=== PATIENT | female | born 1940 | race Caucasian/White ===

== ENCOUNTER 2018-02-22 13:48 | Emergency (ER) | payer SELFPAY ==
--- NOTE | 2018-02-22 14:44 | ER Document Report ---
ED Medical Screen (RME) - General Chief Complaint: Neck and Upper Back Pain Stated Complaint: NECK/HEAD PAIN Time Seen by Provider: 02/22/18 14:42 Mode of Arrival: Ambulatory Information source: Patient TRAVEL OUTSIDE OF THE [place] IN LAST 30 DAYS: No - HPI Patient complains to provider of: neckl and head pain Onset: Other - pt with c/o neck and [place] for the past few days. No new injury - Related Data Allergies/Adverse Reactions: Sulfa (Sulfonamide Antibiotics) Allergy (Verified 02/22/18 14:42) Physical Exam - Vital signs Vitals: Temp Pulse Resp BP Pulse Ox 98.4 F 72 18 155/79 H 98 02/22/18 13:54 02/22/18 13:54 02/22/18 13:54 02/22/18 13:54 02/22/18 13:54 Course - Vital Signs Vital signs: Temp Pulse Resp BP Pulse Ox 98.4 F 72 18 155/79 H 98 02/22/18 13:54 02/22/18 13:54 02/22/18 13:54 02/22/18 13:54 02/22/18 13:54
--- NOTE | 2018-02-22 15:27 | RADIOLOGY REPORT (SQ) ---
EXAM DESCRIPTION: CT HEAD WITHOUT COMPLETED DATE/TIME: 02/22/2018 3:04 pm REASON FOR STUDY: neck pain COMPARISON: Concurrent CT cervical Spine TECHNIQUE: Axial images acquired through the brain without intravenous contrast. Images reviewed wi th bone, brain and subdural windows. Additional sagittal and coronal reconstructions were generated. Images stored on PACS. All CT scanners at this facility use dose modulation, iterative reconstruction, and/or weight based d osing when appropriate to reduce radiation dose to as low as reasonably achievable (ALARA). [facility]: Dose Right [facility]: CareDose [facility]: Dose Right [facility]: Teradose 4D [facility]: Smart [employer] RADIATION DOSE: CT Rad equipment meets quality standard of care and radiation dose reduction techniq ues were employed. CTDIvol: 53.2 mGy. DLP: 1203 mGy-cm. mGy. LIMITATIONS: None. FINDINGS: VENTRICLES: Prominent ventricles secondary to involutional atrophy. CEREBRUM: No masses. No hemorrhage. No midline shift. No evidence for acute infarction. Few scatte red areas of low density in the white matter most likely chronic small vessel ischemic changes. Phys iologic calcifications of the basal ganglia. CEREBELLUM: No masses. No hemorrhage. No alteration of density. No evidence for acute infarction. EXTRAAXIAL SPACES: No fluid collections. No masses. ORBITS AND GLOBE: No intra- or extraconal masses. Normal contour of globe without masses. CALVARIUM: No fracture. PARANASAL SINUSES: No fluid or mucosal thickening. SOFT TISSUES: No mass or hematoma. OTHER: No other significant finding. IMPRESSION: MILD CHRONIC MICROVASCULAR ISCHEMIA. NO ACUTE IMAGING FINDINGS IN THE BRAIN. EVIDENCE OF ACUTE STROKE: NO. COMMENT: Quality ID # [id number]: Final reports with documentation of one or more dose reduction techniques (e.g., Automated exposure control, adjustment of the mA and/or kV according to patient size, use of iterative reconstruction technique) TECHNICAL DOCUMENTATION: JOB ID: [id number] [employer]- All Rights Reserved Reading location - IP/workstation name: [email or web address]
--- NOTE | 2018-02-22 15:37 | RADIOLOGY REPORT (SQ) ---
EXAM DESCRIPTION: CT CERVICAL SPINE WITHOUT COMPLETED DATE/TIME: 02/22/2018 3:04 pm REASON FOR STUDY: neck pain COMPARISON: None. TECHNIQUE: Axial images acquired through the cervical spine without intravenous contrast. Images re viewed with lung, soft tissue and bone windows. Reconstructed coronal and sagittal MPR images review ed. Images stored on PACS. All CT scanners at this facility use dose modulation, iterative reconstruction, and/or weight based d osing when appropriate to reduce radiation dose to as low as reasonably achievable (ALARA). [facility]: Dose Right [facility]: CareDose [facility]: Dose Right [facility]: Teradose 4D [facility]: [employer] RADIATION DOSE: CT Rad equipment meets quality standard of care and radiation dose reduction techniq ues were employed. CTDIvol: 16.8 mGy. DLP: 383 mGy-cm. mGy. LIMITATIONS: None. FINDINGS: ALIGNMENT: Minimal posterior subluxation of the right lateral mass of C1 relative to C2. The left lateral mass is appropriately aligned. Atlanto dens interval is normal. Minimal anterolist hesis of C2 on C3 and C4 on C5. MINERALIZATION: Osteopenia VERTEBRAL BODIES: Vertebral body heights are normal. No acute fracture. DISCS: Severe loss of the C5-C6 and C6-C7 disc heights with vertebral body endplate sclerosis and sma ll anterior and posterior vertebral body osteophytes resulting in mild osseous narrowing of the respe ctive neural foramen. Otherwise, mild diffuse loss of the disc heights. FACETS, LATERAL MASSES, POSTERIOR ELEMENTS: Near complete osseous fusion of the left C2-C3 facets. M oderate right and mild left multilevel facet arthropathy. Mild multilevel uncovertebral facet arthro micha. No acute fracture. HARDWARE: None in the spine. VISUALIZED RIBS: No fractures. LUNG APICES AND SOFT TISSUES: No significant or acute findings. OTHER: No other significant finding. IMPRESSION: 1. No acute fracture. 2. Rotatory atlantoaxial subluxation. Given the additional findings and no history of trauma, this i s likely secondary to arthropathy. 3. Severe degenerative disc disease and moderate facet arthropathy of the cervical spine. TECHNICAL DOCUMENTATION: JOB ID: [id number] Quality ID # [id number]: Final reports with documentation of one or more dose reduction techniques (e.g., Au tomated exposure control, adjustment of the mA and/or kV according to patient size, use of iterative reconstruction technique) 2010 [employer]- All Rights Reserved Reading location - IP/workstation name: [email or web address]
[2018-02-22] MEDS ORDERED: LIDOCAINE 5% (700 MG) TRANSDERMAL ADH..PATCH TP ONE (17:03)
[2018-02-22] MEDS ORDERED: IBUPROFEN 600 MG TABLET PO ONE (17:04)
[2018-02-22] MEDS ORDERED: METHOCARBAMOL 750 MG TABLET PO ONE (17:04)
[2018-02-22] MEDS ORDERED: DEXAMETHASONE SOD PHOS INJ 10 MG/1 ML VIAL IM ONE (17:11)
--- NOTE | 2018-02-22 17:12 | ER Document Report ---
HPI - HPI Pain Level: 5 Notes: Patient is a 78-year-old female who presents with chief complaint of neck pain. Patient reports she has had chronic neck pain for several years, states she believes she may have slept wrong and the pain has worsened over the last couple of days. Patient states it is difficult to move her neck to the left. Patient denies any fever, denies any loss of bowel or bladder, denies any new injury. - DERM Skin Color: Normal Past Medical History - General Information source: Patient - Social History Smoking Status: Never Smoker Chew tobacco use (# tins/day): No Frequency of alcohol use: None Drug Abuse: None Family History: Reviewed & Not Pertinent Patient has suicidal ideation: No Patient has homicidal ideation: No Renal/ Medical History: Denies: Hx Peritoneal Dialysis Vertical Provider Document - CONSTITUTIONAL Notes: PHYSICAL EXAMINATION: GENERAL: Well-appearing, well-nourished and in no acute distress. HEAD: Atraumatic, normocephalic. EYES: Pupils equal round extraocular movements intact, conjunctiva are normal. ENT: Nares patent NECK: Limited range of motion when turning head to the left, no nuchal rigidity noted. LUNGS: No respiratory distress Musculoskeletal: Normal range of motion NEUROLOGICAL: Normal speech, normal gait. PSYCH: Normal mood, normal affect. SKIN: Warm, Dry, normal turgor, no rashes or lesions noted. - INFECTION CONTROL TRAVEL OUTSIDE OF THE [place] IN LAST 30 DAYS: No Course - Re-evaluation Re-evalutation: All imaging is negative for any acute findings. Patient's history as well as physical examination is consistent with musculoskeletal strain. Patient be treated symptomatically and discharged home in stable condition. Close ED return precautions given. - Vital Signs Vital signs: Temp Pulse Resp BP Pulse Ox 98.4 F 72 18 155/79 H 98 02/22/18 13:54 02/22/18 13:54 02/22/18 13:54 02/22/18 13:54 02/22/18 13:54 Discharge - Discharge Clinical Impression: Neck pain, Chronic scapular pain Headache Qualifiers: Headache type: unspecified Headache chronicity pattern: chronic headache Intractability: not intractable Qualified Code(s): R51 - Headache Condition: Stable Disposition: HOME, SELF-CARE Additional Instructions: The CTs that were ordered by Dr. Aj did not show any acute findings or reason for your current neck and head pain. I believe you probably strained your neck potentially while sleeping. Please take the medications as prescribed. Follow-up with 1 of the providers that I have outlined for you. Please also take ibuprofen 600 mg every 6 hours for pain. PAIN MEDICATION INJECTION: You have received an injection of a pain medication. You should experience significant pain relief within 45 minutes. If this injection was a narcotic -- it will impair your judgement, slow your reaction time and make you sleepy (as well as relieve your pain). Narcotics also can cause nausea. You should not drive, work with machinery, or perform any task requiring mental alertness until all effects of the medication are gone -- six to eight hours. Do not take any alcohol, or sedatives, and do not take any other medication without checking with your physician. ORAL NARCOTIC MEDICATION: You have been given a prescription for pain control. This medication is a narcotic. It's best taken with food, as nausea can result if taken on an empty stomach. Don't operate machinery or drive within six hours of taking this medication. Do not combine this medicine with alcohol, or with any medication which can cause sedation (such as cold tablets or sleeping pills) unless you get permission from the physician. Narcotics tend to cause constipation. If possible, drink plenty of fluids and eat a diet high in fiber and fruits. Please be aware that prescription narcotics also have the potential for abuse. People become addicted to these medications because of the general sense of wellbeing that they induce. This feeling along with a significant reduction in tension, anxiety, and aggression provides a stimulating seductive quality to these drugs. Once your pain is under control, we encourage you to discard your unused narcotics. MUSCLE RELAXERS: Muscle relaxing medications are usually prescribed for acute muscle spasm or injury to the neck and back. They are often combined with antiinflammatory pain medication for increased relief. You may stop the muscle relaxer when the pain and stiffness have improved. Start the medication again if spasms recur. Muscle relaxers may cause drowsiness, especially with the first dose. Do not operate machinery or drive while under the effects of the medication. Most muscle relaxers last up to 24 hours. Do not combine the medication with alcohol. ICE PACKS: Apply ice packs frequently against the painful area. Many different schedules are recommended, such as "20 minutes on, 20 minutes off" or "one hour ice, two hours rest." If you need to work, you may need to go longer between ice treatments. You should plan to have the area ice packed AT LEAST one fourth of the time. The ice should be applied over the wrap, tape, or splint, or over a layer of cloth -- not directly against the skin. Some ice bags have a built-in cloth and can be put directly on the skin. WARM PACKS: After approximately two days, apply gentle heat (such as a heating pad or hot water bottle) for about 20 to 30 minutes about every two hours -- at least four times daily. Warmth and elevation will help you make a more rapid recovery , and will ease the pain considerably. Do not use HOT heat, and never apply heat for longer than 30 minutes. The continuous heat can invisibly damage skin and muscles -- even when no burn is seen on the surface. Damaged muscles can make you MORE sore. FOLLOW-UP CARE: If you have been referred to a physician for follow-up care, call the physician s office for an appointment as you were instructed or within the next two days. If you experience worsening or a significant change in your symptoms, notify the physician immediately or return to the Emergency Department at any time for re-evaluation. Prescriptions: Lidocaine [Lidoderm 5% (700 mg) Transdermal Patch] 1 patch TP DAILY #30 adh..patch Methocarbamol [Robaxin 500 mg Tablet] 500 mg PO TID #24 tablet Referrals: [facility] [Outside] - Follow up as needed [facility] [Provider Group] - Follow up as needed
[2018-02-22 17:30] VITALS: BP 151/79
== END 2018-02-22 17:36 | disposition home or self-care (01) ==
LOC: ER 13:48
DX: M54.2 Cervicalgia (principal); R51 Headache; M89.8X1 Other specified disorders of bone, shoulder; G89.29 Other chronic pain
CPT/HCPCS: 99284; 96372; 70450; 72125; J3490; J1100